=== PATIENT | female | born 1995 | race Hispanic/Latino ===

== ENCOUNTER 2021-01-15 20:55 | Emergency (ER) | payer BC, SELFPAY ==
[2021-01-15 22:50] LABS: Urine Blood 3+ (Negative); Urine Glucose Trace (Negative); Urine Protein 3+ (Negative); Urine Specific Gravity 1.025 (1.005-1.030)
--- NOTE | 2021-01-15 22:58 | EDPHYS ---
Physician Documentation [facility] Name: Steph Howell Age: 25 yrs Sex: Female : 1995 Arrival Date: 01/15/2021 Time: 20:58 Bed Waiting Private MD: ED Physician Shaheed Augustin HPI: 01/15 22:56 This 25 yrs old Female presents to ER via Ambulatory with complaints of jr8 Abdominal Pain. 22:56 The patient presents with abdominal pain in the lower abdomen. Onset: The jr8 symptoms/episode began/occurred acutely, yesterday. The symptoms radiate to back. Associated signs and symptoms: Pertinent positives: fever. The symptoms are described as stabbing. Severity of pain: At its worst the pain was moderate in the emergency department the pain has improved mildly. The patient has not experienced similar symptoms in the past. The patient has not recently seen a physician. This is a 25-year-old female patient presented to emergency room with urinary complaints. Stated that she also has lower abdominal pain radiating to the back. Feels slightly better post void but then pain increases afterwards. Is been on [id number] Azo's for the time being. Denies any other complaints at this time.. ROS: 22:56 Eyes: Negative for injury, pain, redness, and discharge, ENT: Negative for injury, jr8 pain, and discharge, Neck: Negative for injury, pain, and swelling, Cardiovascular: Negative for chest pain, palpitations, and edema, Respiratory: Negative for shortness of breath, cough, wheezing, and pleuritic chest pain, Back: Negative for injury and pain, MS/Extremity: Negative for injury and deformity, Skin: Negative for injury, rash, and discoloration, Neuro: Negative for headache, weakness, numbness, tingling, and seizure. 22:56 Abdomen/GI: Positive for abdominal pain, Negative for nausea, vomiting, and diarrhea. 22:56 : Positive for urinary symptoms. Exam: 22:56 Constitutional: This is a well developed, well nourished patient who is awake, alert, jr8 and in no acute distress. Cardiovascular: Regular rate and rhythm with a normal S1 and S2. No gallops, murmurs, or rubs. Normal PMI, no JVD. No pulse deficits. Respiratory: Lungs have equal breath sounds bilaterally, clear to auscultation and percussion. No rales, rhonchi or wheezes noted. No increased work of breathing, no retractions or nasal flaring. Abdomen/GI: Soft, non-tender, with normal bowel sounds. No distension or tympany. No guarding or rebound. No evidence of tenderness throughout. Back: No spinal tenderness. No costovertebral tenderness. Full range of motion. Skin: Warm, dry with normal turgor. Normal color with no rashes, no lesions, and no evidence of cellulitis. MS/ Extremity: Pulses equal, no cyanosis. Neurovascular intact. Full, normal range of motion. Neuro: Awake and alert, GCS 15, oriented to person, place, time, and situation. Cranial nerves II-XII grossly intact. Motor strength 5/5 in all extremities. Sensory grossly intact. Vital Signs: 21:40 BP 138 / 84; Pulse 99; Resp 20; Temp 98.7; Pulse Ox 100% on R/A; Weight 129.27 kg; wg Height 5 ft. 0 in. (152.40 cm); Pain 9/10; 23:01 BP 135 / 74; Pulse 76; Resp 16 S; Temp 99.4(O); Pulse Ox 97% on R/A; bb 21:40 Body Mass Index 55.66 (129.27 kg, 152.40 cm) wg MDM: 22:56 Data reviewed: vital signs, nurses notes, lab test result(s), and as a result, I will jr8 discharge patient. Data interpreted: Pulse oximetry: on room air is 100 %. Interpretation: normal. Counseling: I had a detailed discussion with the patient and/or guardian regarding: the historical points, exam findings, and any diagnostic results supporting the discharge/admit diagnosis, lab results, the need for outpatient follow up, a family practitioner, to return to the emergency department if symptoms worsen or persist or if there are any questions or concerns that arise at home. 22:58 Patient medically screened. jr8 01/15 22:49 Order name: Urine Dipstick-Ancillary; Complete Time: 22:56 EDMS 01/15 22:52 Order name: Urine Microscopic Only; Complete Time: 01:27 mw2 01/15 21:48 Order name: Urine Dipstick-Ancillary (obtain specimen); Complete Time: 22:51 wg 01/15 22:52 Order name: Urine Culture mw2 Administered Medications: 23:04 Drug: Pyridium (phenazopyridine) 200 mg Route: PO; 23:07 Follow up: Response: Medication administered at discharge. 23:04 Drug: Macrobid (nitrofurantoin) 100 mg Route: PO; 23:07 Follow up: Response: Medication administered at discharge. cliff Disposition: 01/16 01:27 Co-signature as Attending Physician, Shaheed Augustin MD I agree with the assessment and rn plan of care. Attestation: The patient's history, exam findings, diagnostics, and a summary of any interventions or procedures was reviewed in detail with Wes HENRIQUEZ. Disposition Summary: 01/15/21 22:58 Discharge Ordered Location: Home [facility] Problem: new jr8 Symptoms: have improved jr8 Condition: Stable jr8 Diagnosis - Acute cystitis with hematuria jr8 Followup: jr8 - With: Private Physician - When: 5 - 6 days - Reason: Recheck today's complaints, Continuance of care, Re-evaluation by your physician Discharge Instructions: - Discharge Summary Sheet jr8 - Urinary Tract Infection, Adult jr8 Forms: - Medication Reconciliation Form jr8 - Thank You Letter jr8 - Antibiotic Education jr8 - Prescription Opioid Use jr8 Prescriptions: - Pyridium 200 mg Oral Tablet - take 1 tablet by ORAL route every 8 hours for 3 days; 9 tablet; Refills: 0, jr8 Product Selection Permitted - Macrobid 100 mg Oral Capsule - take 1 capsule by ORAL route every 12 hours for 7 days; 14 capsule; Refills: 0, jr8 Product Selection Permitted Signatures: Dispatcher [employer] Kimberly Gary RN RN bb Nieto, Roman, MD MD rn Roszak, Josh, PA PA jr8 Steve Spencer RN Corrections: (The following items were deleted from the chart) 01/15 23:03 21:48 IV Saline Lock ordered. [facility] 23: 21:48 Labs collected and sent ordered. cliff
--- NOTE | 2021-01-15 22:58 | ER ---
Nurse's Notes [facility] Name: Steph Howell Age: 25 yrs Sex: Female : 1995 Arrival Date: 01/15/2021 Time: 20:58 Bed Waiting Private MD: Diagnosis: Acute cystitis with hematuria Presentation: 01/15 21:40 Chief complaint: Patient states: Pt states she started having abdominal pain and right wg flank pain approx 4-5 hours ago. Pt has a hx of diverticulosis. Pt states she has had pain on urination. Denies N/V, dizziness, SOB and fever. Coronavirus screen: Vaccine status: Patient reports receiving the 1st dose of the Covid vaccine. Date January 04, 2021 The client denies any previous COVID testing. Ebola Screen: Patient negative for fever greater than or equal to 101.5 degrees Fahrenheit, and additional compatible Ebola Virus Disease symptoms Patient denies exposure to infectious person. Patient denies travel to an Ebola-affected area in the 21 days before illness onset. No symptoms or risks identified at this time. Initial Sepsis Screen: Does the patient meet any 2 criteria? No. Patient's initial sepsis screen is negative. Does the patient have a suspected source of infection? No. Patient's initial sepsis screen is negative. Risk Assessment: Do you want to hurt yourself or someone else? Patient reports no desire to harm self or others. Onset of symptoms was January 15, 2021 at 15:00. Care prior to arrival: Medication(s) given: Azo- Uti analgesic. 21:40 Method Of Arrival: Ambulatory 21:40 Acuity: SASHA 3 21:49 Note Last Menstruation 12/24/2020. Triage Assessment: 21:44 General: Appears uncomfortable, obese, well groomed, well developed, Behavior is calm, wg cooperative, appropriate for age. Pain: Complains of pain in abdomen, radiating to right flank. EENT: No deficits noted. Neuro: No deficits noted. Cardiovascular: No deficits noted. Respiratory: No deficits noted. GI: Reports Abd pain radiating to right flank. : Reports burning with urination, relief after taking Azo. Derm: No deficits noted. Screenin:01 Abuse screen: Denies threats or abuse. Nutritional screening: No deficits noted. bb Tuberculosis screening: No symptoms or risk factors identified. Fall Risk None identified. Assessment: 23:01 General: Appears in no apparent distress. uncomfortable, Behavior is calm, cooperative. bb Neuro: Level of Consciousness is awake, alert, obeys commands, Oriented to person, place, time, situation. Cardiovascular: Capillary refill < 3 seconds Patient's skin is warm and dry. Respiratory: Respiratory effort is even, unlabored. Derm: Skin is pink, warm \T\ dry. Vital Signs: 21:40 BP 138 / 84; Pulse 99; Resp 20; Temp 98.7; Pulse Ox 100% on R/A; Weight 129.27 kg; wg Height 5 ft. 0 in. (152.40 cm); Pain 9/10; 23:01 BP 135 / 74; Pulse 76; Resp 16 S; Temp 99.4(O); Pulse Ox 97% on R/A; bb 21:40 Body Mass Index 55.66 (129.27 kg, 152.40 cm) wg ED Course: 20:58 Patient arrived in ED. bp1 21:44 Triage completed. wg 21:44 Arm band placed on right wrist. wg 21:46 Steve Spencer, RN is Primary Nurse. wg 22:56 Wes Orellana PA is PHCP. jr8 22:56 Shaheed Augustin MD is Attending Physician. jr8 23:01 Patient has correct armband on for positive identification. bb 23:01 No provider procedures requiring assistance completed. bb 23:02 Patient did not have IV access during this emergency room visit. bb Administered Medications: 23:04 Drug: Pyridium (phenazopyridine) 200 mg Route: PO; bb 23:07 Follow up: Response: Medication administered at discharge. bb 23:04 Drug: Macrobid (nitrofurantoin) 100 mg Route: PO; bb 23:07 Follow up: Response: Medication administered at discharge. bb Outcome: 22:58 Discharge ordered by . jr8 23:02 Discharged to home ambulatory, with family. bb 23:02 Condition: stable 23:02 Discharge instructions given to patient, Instructed on discharge instructions, follow up and referral plans. medication usage, Demonstrated understanding of instructions, follow-up care, medications, Prescriptions given X 2. 23:07 Patient left the ED. bb Addendum: 01/19/2021 07:37 Addendum: Culture Results: Positive urine culture. No further action required. Bacteria e b sensitive to prescribed antibiotic. Signatures: Kimberly Simmons, ELIZABETH RN bb Wse Orellana PA PA jr8 Stephanie Leal Brittany bp1 Gamba, Liam, RN wg
[2021-01-15] MEDS ORDERED: NITROFURAN MACRO 100 MG CAP PO ONE (23:30)
[2021-01-15] MEDS ORDERED: PHENAZOPYRIDINE 100MG TAB PO ONE (23:30)
[2021-01-16 00:24] LABS: Urine Volume 1 mL
[2021-01-16 00:25] LABS: Urine Bacteria <20 /HPF (<20); Urine Urothelial Cells <5 /HPF (NONE SEEN)
== END 2021-01-15 23:07 | disposition home or self-care (01) ==
LOC: ER 20:55
DX: N30.01 Acute cystitis with hematuria (principal)
CPT/HCPCS: 81003; 81015; 87077; 87086; 87088; 87186; 99283